=== PATIENT | female | born 1955 | race Caucasian/White ===

== ENCOUNTER 2016-11-05 20:54 | Emergency (ER) | payer BC ==
--- NOTE | 2016-11-05 22:08 | C.PDOC ---
History Of Present Illness Patient presents to the ER with a complaint of a dull, aching, chest pain for the past couple of days. Patient is able to speaking in complete sentences. Denies fever, chills, nausea, or vomiting. Time Seen by Provider: 11/05/16 22:01 Chief Complaint (Nursing): Chest Pain History Per: Patient History/Exam Limitations: no limitations Onset/Duration Of Symptoms: Days Current Symptoms Are (Timing): Still Present Context: Other (Not known) Severity: Moderate Pain Scale Rating Of: 4 Quality: Dull, Aching Associated Symptoms: Other (none) Modifying Factors: None Exacerbating Factors: None Alleviating Factors: None Recent travel outside of the [place]: No Past Medical History Reviewed: Historical Data, Nursing Documentation, Vital Signs Vital Signs: Last Vital Signs Temp 98.1 F 11/05/16 21:19 Pulse 66 11/05/16 21:51 Resp 16 11/05/16 21:51 BP 152/64 H 11/05/16 21:51 Pulse Ox 99 11/05/16 23:53 - Medical History PMH: HTN, Hypercholesterolemia Surgical History: No Surg Hx Family History: States: Diabetes - Social History Hx Tobacco Use: No Hx Alcohol Use: No Hx Substance Use: No - Immunization History Hx Influenza Vaccination: No Hx Pneumococcal Vaccination: No Review Of Systems Constitutional: Negative for: Fever, Chills Cardiovascular: Positive for: Chest Pain Gastrointestinal: Negative for: Nausea, Vomiting Physical Exam - Physical Exam Appears: Non-toxic Skin: Warm, Dry Oral Mucosa: Moist Chest: Symmetrical, No Tenderness Cardiovascular: Rhythm Regular, No Friction Rub Respiratory: No Rales, No Rhonchi, Wheezing (At bases) Gastrointestinal/Abdominal: Soft, No Tenderness Neurological/Psych: Oriented x3 ED Course And Treatment - Laboratory Results Result Diagrams: 11/05/16 22:11 11/05/16 22:11 ECG: Interpreted By Me, Viewed By Me ECG Rhythm: Sinus Rhythm (77), Nonspecific Changes O2 Sat by Pulse Oximetry: 99 Pulse Ox Interpretation: Normal Progress Note: Blood work, EKG, and urinalysis ordered. Aspirin PO administered. Reevaluation Time: 00:18 Reassessment Condition: Improved Medical Decision Making Medical Decision Making: Upon provider reevaluation patient is feeling better, is medically stable, and requires no further treatment in the ED at this time. Patient will be discharged home with. Counseling was provided and all questions were answered regarding diagnosis and need for follow up with the referred clinic. There is agreement to discharge plan. Return if symptoms persist or worsen. I considered the following diagnoses: acute coronary syndrome, pulmonary embolism, lower respiratory infection, aortic dissection/aneurysm, pneumothorax , pericarditis, esophagitis/GERD, zoster and esophageal rupture but found them to be unlikely based on the history, physical exam, and diagnostics. My conclusions regarding the unlikely diagnoses were based on: the absence of significant EKG abnormalities, the lack of suggestive x-ray findings, the absence of significant abnormalities on cardiac monitoring, the absence of asymmetric pulses, Disposition Counseled Patient/Family Regarding: Studies Performed, Diagnosis, Need For Followup - Disposition Referrals: Maricarmen Sinha MD [Medical Doctor] - Disposition: HOME/ ROUTINE Disposition Time: 22:08 Condition: FAIR Additional Instructions: Please return if symptoms recur Instructions: Chest Pain (DC) Print Language: ICELANDIC - Clinical Impression Clinical Impression: Chest pain - Scribe Statement The provider has reviewed the documentation as recorded by the Scribadolfo Collins All medical record entries made by the Cassandraibadolfo were at my direction and personally dictated by me. I have reviewed the chart and agree that the record accurately reflects my personal performance of the history, physical exam, medical decision making, and the department course for this patient. I have also personally directed, reviewed, and agree with the discharge instructions and disposition.
[2016-11-05] MEDS ORDERED: Aspirin 325 mg EC Tablets PO STA (22:09)
[2016-11-05 22:21] LABS: BASO % 0.5 % (0.0-2.0); EOS # 0.3 K/uL (0.0-0.7); EOS % 3.7 % (0.0-4.0); LYMPH # 2.7 K/uL (1.0-4.3); LYMPH % 30.3 % (20.0-40.0); MEAN CELL VOLUME 84.5 fL (81.0-99.0); MEAN CORPUSCULAR HEMOGLOBIN 28.7 pg (27.0-31.0); MEAN CORPUSCULAR HGB CONC 33.9 g/dL (33.0-37.0); MEAN PLATELET VOLUME 8.4 fL (7.2-11.7); MONO # 0.7 K/uL (0.0-0.8); MONO % 8.2 % (0.0-10.0); RED CELL DISTRIBUTION WIDTH 14.2 % (11.5-14.5)
[2016-11-05 22:23] LABS: CHLORIDE 97 mmol/L (98-107); SODIUM 135 mmol/L (132-148)
[2016-11-05 22:25] LABS: BILIRUBIN,TOTAL 0.5 mg/dL (0.2-1.3); CARBON DIOXIDE 29 mmol/L (22-30); GFR AFRICAN-AMERICAN > 60
[2016-11-05 22:26] LABS: ALB/GLOB RATIO 1.4 (1.0-2.1); ALKALINE PHOSPHATASE 61 U/L (38-126); ALT/SGPT 18 U/L (9-52); AST/SGOT 18 U/L (14-36); BLOOD UREA NITROGEN 18 mg/dL (7-17); CALCIUM 8.7 mg/dl (8.6-10.4); GLUCOSE,RANDOM 138 mg/dL (65-105); TOTAL PROTEIN 6.9 g/dL (6.3-8.3)
[2016-11-05] MEDS ORDERED: Aspirin 325 mg EC Tablets PO ONE (22:47)
[2016-11-05 22:49] LABS: RBC URINE < 1 /hpf (0-3); URINE BILIRUBIN NEGATIVE (NEGATIVE); URINE BLOOD NEGATIVE (NEGATIVE); URINE COLOR Straw (YELLOW); URINE GLUCOSE (UA) NORMAL (Normal); URINE KETONE NEGATIVE (NEGATIVE); URINE LEUKOCYTE ESTERASE NEG Leu/uL (Negative); URINE PROTEIN NEGATIVE (NEGATIVE); URINE UROBILINOGEN NORMAL mg/dL (0.2-1.0); WBC URINE 1 /hpf (0-5)
[2016-11-06 00:46] VITALS: BP 158/81; PULSE 62; RESP 18; TEMP 97.6; O2SAT 97
--- NOTE | 2016-11-09 18:51 | CARD ---
APPROVED REPORT EKG Measurement Heart [id number] <Conclusion> Normal sinus rhythm Normal ECG
== END 2016-11-06 00:49 | disposition home or self-care (01) ==
LOC: C.ER 20:54
DX: R07.9 Chest pain, unspecified (principal)

== ENCOUNTER 2018-08-16 17:32 | Emergency (ER) | payer BC ==
[2018-08-16 17:39] VITALS: BMI 26.9
[2018-08-16 17:49] VITALS: BP 113/73; PULSE 68; RESP 18; TEMP 98.1; O2SAT 97
[2018-08-16] MEDS ORDERED: Fluorescein 1 mg Ophthalmic Strip OS ONE (18:20)
[2018-08-16] MEDS ORDERED: Fluorescein 1 mg Ophthalmic Strip ONE (18:38)
--- NOTE | 2018-08-16 18:51 | C.PDOC ---
History Of Present Illness 63 y/o female presents to ED for medical evaluation for burning sensation in left eye s/p topical fungal solution (not meant for eyes) last night. She reports only putting in one drop and rinsing her eyes immediately afterwards. She woke up the next day with pain in the eye 4/10 and redness. She denies use of any eye drops for relief. She denies any visual changes, tearing, and headache. Time Seen by Provider: 08/16/18 18:15 Chief Complaint (Nursing): Eye Problem History Per: Patient History/Exam Limitations: no limitations Onset/Duration Of Symptoms: Days (1) Current Symptoms Are (Timing): Still Present Pain Scale Rating Of: 4 Quality: Burning Wears Contact Lens?: No Associated Symptoms: Pain. denies: Decreased Vision, Swelling, FB Sensation, Itching, Discharge From Eye Recent travel outside of the [place]: No Past Medical History Reviewed: Historical Data, Nursing Documentation, Vital Signs Vital Signs: Last Vital Signs Temp 98.1 F 08/16/18 17:39 Pulse 68 08/16/18 17:39 Resp 18 08/16/18 17:39 BP 113/73 08/16/18 17:39 Pulse Ox 97 08/16/18 17:39 - Medical History PMH: HTN, Hypercholesterolemia Family History: States: Diabetes - Social History Hx Tobacco Use: No Hx Alcohol Use: No Hx Substance Use: No - Immunization History Hx Influenza Vaccination: No Hx Pneumococcal Vaccination: No Review Of Systems Constitutional: Negative for: Fever, Chills Eyes: Positive for: Pain, Conjunctivae Inflammation, Redness. Negative for: Vision Change, Eyelid Inflammation ENT: Negative for: Ear Pain, Nose Discharge, Throat Pain Respiratory: Negative for: Shortness of Breath Skin: Negative for: Rash Neurological: Negative for: Headache, Dizziness Physical Exam - Physical Exam Appears: Well, Non-toxic, No Acute Distress Skin: Normal Color, Warm, Dry Head: Atraumatic, Normacephalic Eye(s): bilateral: Normal Inspection, PERRL, EOMI, left: Other (injection of conj from 0500 to 0800; fluorescein applied;no obvious abrasion or ulcer noted) Ear(s): Bilateral: Normal (TM intact AU) Nose: No Discharge Oral Mucosa: Moist Throat: No Erythema, No Exudate Neck: Normal ROM, Supple Lymphatic: No Adenopathy (cervical) Chest: Symmetrical Cardiovascular: Rhythm Regular Respiratory: Normal Breath Sounds, No Wheezing Neurological/Psych: Oriented x3, Normal Speech, Normal Cognition, Normal Motor, Normal Sensation ED Course And Treatment O2 Sat by Pulse Oximetry: 97 Medical Decision Making Medical Decision Making: Plan: Poison Control contacted and recommended follow up with Ophtho and supportive care D/W patient and verbalized understanding and is in agreement with plan She will make appt with ophtho tomorrow Disposition Counseled Patient/Family Regarding: Diagnosis, Need For Followup, Rx Given - Disposition Referrals: [facility] [Outside] Moe Armando [Staff Provider] - Disposition: HOME/ ROUTINE Disposition Time: 18:52 Condition: STABLE Additional Instructions: BUBBA AGEE, thank you for letting us take care of you today. Your provider was Misa Weiss MD/Bandar Veliz PA-C and you were treated for EYE PROBLEM. The emergency medical care you received today was directed at your acute symptoms. If you were prescribed any medication, please fill it and take as directed. It may take several days for your symptoms to resolve. Return to the Emergency D epartment if your symptoms worsen, do not improve, or if you have any other problems. Please contact your doctor or call one of the physicians/clinics you have been referred to that are listed on the Patient Visit Information form that is included in your discharge packet. Bring any paperwork you were given at discharge with you along with any medications you are taking to your follow up visit. Our treatment cannot replace ongoing medical care by a primary care provider outside of the emergency department. Thank you for allowing the [facility] team to be part of your care today. Prescriptions: Propylene Glycol/Peg 400 [Systane Gel Eye Drops] 10 ml OS BID #1 bottle Instructions: Chemical Eye Injury (DC) Forms: [employer] (Greek) Print Language: NIGERIEN - Clinical Impression Clinical Impression: Pain in eye, Acute chemical conjunctivitis of left eye - PA / PHOTO STYLIST / Resident Statement MD/DO has reviewed & agrees with the documentation as recorded.
== END 2018-08-16 18:50 | disposition home or self-care (01) ==
LOC: C.ER 17:32
DX: H10.212 Acute toxic conjunctivitis, left eye (principal); H57.12 Ocular pain, left eye